=== PATIENT | female | born 1945 | race Caucasian/White ===

== ENCOUNTER 2018-03-29 10:21 | Emergency (ER) | payer OTHER ==
[~2018-03-29] VITALS: Ht 162.6 cm; Wt 57.2 kg
[2018-03-29 10:28] VITALS: Ht 162.6 cm; Wt 57.2 kg
[2018-03-29 11:41] LABS: BASOPHIL % 0.9 % (0-2); PLATELET COUNT 307 x10^3mcL (130-400); RED CELL DISTRIBUTION WIDTH 14.2 % (11.5-14.5)
[2018-03-29 11:43] LABS: CARBON DIOXIDE 29.4 mmol/L (21-32); CHLORIDE SERUM 98 mmol/L (98-107); CREATININE SERUM 0.6 mg/dL (0.6-1.0); GLUCOSE SERUM 126 mg/dL (74-106); POTASSIUM SERUM 4.3 mmol/L (3.5-5.1); SODIUM SERUM 136 mmol/L (136-145)
[2018-03-29 11:51] LABS: ALBUMIN 4.2 g/dL (3.4-5.0); ALKALINE PHOSPHATASE 109 U/L (46-116); ALT/SGPT 22 U/L (14-59); AST/SGOT 15 U/L (15-37); BILIRUBIN TOTAL 0.4 mg/dL (0.20-1.00); TOTAL PROTEIN, SERUM 8.3 g/dL (6.4-8.2)
[2018-03-29 13:05] VITALS: BP 161/75
== END 2018-03-29 13:06 | disposition home or self-care (01) ==
LOC: ED 10:21
PROVIDERS: Emergency Medicine
DX: R07.89 Other chest pain (principal); R14.0 Abdominal distension (gaseous); R00.2 Palpitations
CPT/HCPCS: 36415; Q0092

== ENCOUNTER 2018-10-03 18:01 | Observation (INO) | payer OTHER ==
[~2018-10-03] VITALS: Ht 162.6 cm; Wt 55.0 kg
[2018-10-03 18:41] LABS: BASOPHIL % 0.5 % (0-2); PLATELET COUNT 277 x10^3mcL (130-400)
[2018-10-03 18:49] LABS: CALCIUM 8.9 mg/dL (8.5-10.1); CARBON DIOXIDE 25.6 mmol/L (21-32); CHLORIDE SERUM 100 mmol/L (98-107); CREATININE SERUM 0.6 mg/dL (0.6-1.0); GLUCOSE SERUM 131 mg/dL (74-106); POTASSIUM SERUM 3.9 mmol/L (3.5-5.1); SODIUM SERUM 137 mmol/L (136-145)
[2018-10-03 18:54] LABS: ALBUMIN 3.9 g/dL (3.4-5.0); ALKALINE PHOSPHATASE 89 U/L (46-116); ALT/SGPT 17 U/L (14-59); AST/SGOT 16 U/L (15-37); TOTAL PROTEIN, SERUM 7.7 g/dL (6.4-8.2)
[2018-10-03 21:44] VITALS: BP 147/84
[2018-10-03 21:51] VITALS: Ht 162.6 cm; Wt 55.0 kg
[2018-10-04 03:28] LABS: BASOPHIL % 0.4 % (0-2); PLATELET COUNT 275 x10^3mcL (130-400); RED CELL DISTRIBUTION WIDTH 13.4 % (11.5-14.5)
[2018-10-04 03:57] LABS: CALCIUM 9.1 mg/dL (8.5-10.1); CARBON DIOXIDE 28.4 mmol/L (21-32); CHLORIDE SERUM 103 mmol/L (98-107); CREATININE SERUM 0.6 mg/dL (0.6-1.0); GLUCOSE SERUM 107 mg/dL (74-106); SODIUM SERUM 139 mmol/L (136-145)
[2018-10-04 04:16] LABS: CK-MB 0.9 ng/mL (0-3.6)
[2018-10-04 04:48] VITALS: BP 119/71
[2018-10-04 08:55] VITALS: BP 122/66
[2018-10-04 11:11] LABS: CK-MB 0.9 ng/mL (0-3.6)
[2018-10-04 12:55] VITALS: BP 122/66
== END 2018-10-04 13:54 | disposition home or self-care (01) | DRG 392 ==
LOC: ED 18:01 → DU 19:40
PROVIDERS: Emergency Medicine; ADMIT Internal Medicine
DX: R10.13 Epigastric pain (principal); I49.3 Ventricular premature depolarization; R73.03 Prediabetes
CPT/HCPCS: 83880; G0378; J1650; Q0092

== ENCOUNTER 2019-09-29 16:06 | Emergency (ER) | payer OTHER, MEDICAID ==
[~2019-09-29] VITALS: Ht 162.6 cm; Wt 64.4 kg
[2019-09-29 16:26] VITALS: Ht 162.6 cm; Wt 64.4 kg
[2019-09-29 17:57] LABS: BASOPHIL % 0.5 % (0-2); PLATELET COUNT 317 x10^3mcL (130-400); RED CELL DISTRIBUTION WIDTH 13.6 % (11.5-14.5)
[2019-09-29 18:26] LABS: CALCIUM 8.9 mg/dL (8.5-10.1); CARBON DIOXIDE 25.7 mmol/L (21-32); CHLORIDE SERUM 104 mmol/L (98-107); CREATININE SERUM 0.6 mg/dL (0.6-1.0); GLUCOSE SERUM 108 mg/dL (74-106); POTASSIUM SERUM 3.7 mmol/L (3.5-5.1); SODIUM SERUM 140 mmol/L (136-145)
[2019-09-29 18:31] LABS: ALBUMIN 3.7 g/dL (3.4-5.0); ALKALINE PHOSPHATASE 98 U/L (46-116); ALT/SGPT 25 U/L (14-59); AST/SGOT 19 U/L (15-37); BILIRUBIN TOTAL 0.6 mg/dL (0.20-1.00); TOTAL PROTEIN, SERUM 7.8 g/dL (6.4-8.2)
[2019-09-29 20:23] VITALS: BP 146/82
== END 2019-09-29 20:23 | disposition home or self-care (01) ==
LOC: ED 16:06
PROVIDERS: Emergency Medicine
DX: I10 Essential (primary) hypertension (principal); J40 Bronchitis, not specified as acute or chronic; E11.9 Type 2 diabetes mellitus without complications; Z88.0 Allergy status to penicillin; Z88.1 Allergy status to other antibiotic agents; Z90.89 Acquired absence of other organs; Z98.890 Other specified postprocedural states
CPT/HCPCS: 36415